=== PATIENT | male | born 1960 | race Caucasian/White ===

== ENCOUNTER 2024-11-14 16:04 | Emergency (ER) | payer SELFPAY ==
[2024-11-14] MEDS: Bacitracin Oint 1 GM U/D Packet TOP ONE (16:24)
[2024-11-14] MEDS: Diphtheria,Pertussis(Acell),Tetanus Vaccine 0.5 ML Syringe IM ONE (16:24)
[2024-11-14] MEDS: Ketorolac 30 MG/ML SDV IM ONE (18:15)
== END 2024-11-14 18:22 | disposition home or self-care (01) ==
LOC: MW.ED 16:04
DX: S81.012A Laceration without foreign body, left knee, initial encounter (principal); S87.02XA Crushing injury of left knee, initial encounter; Z23 Encounter for immunization; Z79.899 Other long term (current) drug therapy; W23.0XXA Caught, crushed, jammed, or pinched between moving objects, initial encounter
CPT/HCPCS: 12001; 73560; 90471; 90715; 96372; 99283; A9270; J1885